=== PATIENT | male | born 1945 | race American Indian/Alaskan Native ===

== ENCOUNTER 2017-07-09 09:10 | Day surgery (SDC) | payer MEDICARE ==
[2017-07-09] MEDS ORDERED: NACL 0.9% 1000 ML 1,000 ML IV SCH (10:00)
--- NOTE | 2017-07-09 10:21 | Anesthesia Day of Surgery ---
Anesthesia Day of Surgery - Day of Surgery Patient Examined: Yes Patient H&P Reviewed: Yes Patient is NPO: Yes Beta Blockers: Yes
--- NOTE | 2017-07-09 10:21 | Anesthesia Consultation ---
Anesthesia Consult and Med Hx Date of service: 07/09/17 - Airway Anesthetic Teeth Evaluation: Good ROM Head & Neck: Adequate Mental/Hyoid Distance: Adequate Mallampati Class: Class II Intubation Access Assessment: Probably Good - Pulmonary Exam CTA: Yes - Cardiac Exam Cardiac Exam: RRR - Pre-Operative Health Status ASA Pre-Surgery Classification: ASA3 Proposed Anesthetic Plan: MAC - Pulmonary Hx Smoking: Yes (STOPPED 1989-1/2PACK/WEEK X 23 YRS) COPD: Yes Hx Pneumonia: No Hx Sleep Apnea: No (BETY PRE SCREEN HIGH RISK) - Cardiovascular System Hx Hypertension: Yes Hx Coronary Artery Disease: Yes Hx Heart Attack/AMI: No Hx Percutaneous Transluminal Coronary Angioplasty (PTCA): No Hx Valvular Heart Disease: Yes (LEAKING VALVE) - Central Nervous System Hx Seizures: No CVA: No Hx Back Pain: Yes Hx Psychiatric Problems: No - Gastrointestinal Hx Gastroesophageal Reflux Disease: Yes - Endocrine Hx Insulin Dependent Diabetes: Yes (BS 327) - Other Systems Hx Cancer: No Hx Obesity: Yes
[2017-07-09] MEDS ORDERED: DIPRIVAN 10 MG/ML IV ONE ×3 (11:39→12:36)
[2017-07-09] MEDS ORDERED: WATER FOR IRRIG STERILE IR ONE (11:46)
[2017-07-09 12:39] VITALS: BP 150/72
--- NOTE | 2017-07-09 12:41 | Operative Report ---
Operative Report Operative Report: Date of procedure: 07/08/2017 Procedure: Colonoscopy with submucosal injection and multiple cold snare polypectomies Attending physician: Octaviano Montoya MD Switchman Supervisor: Octaviano Montoya MD Indication: Patient is a 72-year-old male who presents for colorectal cancer screening. A colonoscopy is done to evaluate patient so that treatment may be directed based on the findings. Consent: Informed consent was obtained after advising the patient and family regarding nature of this procedure, its indications, potential benefits as well as possible complications including but not limited to bleeding perforation and adverse reaction to medication, infection as well as other cardiopulmonary complications. An informed written and verbal consent was then obtained after due opportunity was provided for questions and answers. Monitoring: Patient was monitored continuously with pulse oximetry and electrocardiographic recordings as well as blood pressure recordings. Vital signs remained stable throughout this procedure with no untoward events. Preoperative assessment: Patient was assessed immediately prior to this procedure for capacity to tolerate monitored anesthesia care and moderate sedation as well as general anesthesia. Patient's ASA classification is 3, Mallampati class is 2, Hyomental distance is 3. Instrument: [employer] videocolonoscope Medications: Propofol given intravenously in divided doses. For details please refer to anesthesia records. Description of procedure: Patient was placed in the left lateral decubitus position after achieving sedation, a digital rectal examination was performed following which the colonoscope was introduced into the anal verge and advanced to the cecum which was identified by the cecal valve, the appendiceal orifice, as well as by the cecal strap and direct transillumination. The colonoscope was subsequently withdrawn with careful inspection of all mucosal surfaces. Patient tolerated this procedure well and was subsequently taken to the recovery room. The following findings were noted. Findings: The preparation was fair. There were a few diverticula in the proximal ascending colon and also in the sigmoid colon. The cecum otherwise was normal. The ascending colon was normal. In the transverse colon, there were 2 polyps. They measured approximately 6-7 mm. Both polyps were flat. There were elevated with submucosal injection of saline and removed with a cold snare polypectomy. Patient tolerated the procedure well, post polypectomy there was no residual bleeding. The site was inspected and irrigated. The descending colon otherwise was normal. Other than a few diverticula in the sigmoid colon, it was normal. Patient had prominent large internal hemorrhoids noted on the retroflex view at the anal verge. In the rectum, patient appeared to have an area of scar formation which appeared to correspond to a prior polypectomy site. Impression: Flat transverse colon polyps status post submucosal injection and cold snare polypectomies. Mild diverticulosis. Prominent large internal hemorrhoids. Plan: Follow pathology report. Consider repeat colonoscopy in 5 years if polyps are adenomatous. High-fiber diet.
--- NOTE | 2017-07-09 12:42 | Discharge Summary ---
Short Stay Discharge Plan Activity: advance as tolerated Weight Bearing Status: Weight Bear as Tolerated Diet: regular
--- NOTE | 2017-07-09 15:01 | Post Anesthesia Evaluation ---
- Post Anesthesia Evaluation Patient Participated: Yes Airway Patent: Yes Stable Respiratory Function: Yes Nausea/Vomiting: No Temp > 96.8F: Yes Pain Manageable: Yes Adequeate Hydration: Yes Anesthesia Complications: No Block Receding Appropriately: Not Applicable Patient on Ventilator: No
== END 2017-07-09 09:11 | disposition home or self-care (01) ==
LOC: GIO 09:10
PROVIDERS: ATTEND Internal Medicine Gastroenterology
DX: Z12.11 Encounter for screening for malignant neoplasm of colon (principal); K57.30 Diverticulosis of large intestine without perforation or abscess without bleeding; K64.8 Other hemorrhoids; D12.3 Benign neoplasm of transverse colon; F17.210 Nicotine dependence, cigarettes, uncomplicated; J44.9 Chronic obstructive pulmonary disease, unspecified; I10 Essential (primary) hypertension; K21.9 Gastro-esophageal reflux disease without esophagitis; I25.10 Atherosclerotic heart disease of native coronary artery without angina pectoris; I50.9 Heart failure, unspecified; E66.9 Obesity, unspecified; Z68.41 Body mass index [BMI] 40.0-44.9, adult; Z98.890 Other specified postprocedural states; Z79.82 Long term (current) use of aspirin; Z79.899 Other long term (current) drug therapy; Z79.4 Long term (current) use of insulin; Z80.0 Family history of malignant neoplasm of digestive organs
CPT/HCPCS: 45381; 45385; 82962; 88305; 96374; J2704; J7030; J1815